=== PATIENT | male | born 1965 | race Caucasian/White ===

== ENCOUNTER 2019-07-13 18:38 | Emergency (ER) | payer MEDICARE, OTHER ==
[~2019-07-13] VITALS: Ht 170.2 cm; Wt 77.1 kg
[~2019-07-13 18:38] MED LIST: COMIH IN; LISI-283 PO; METO25TA93 PO; MONT10TA34 PO; OMEP20CA74 PO; PREDPOW63 PO; THEO1CAP4 PO
[2019-07-13 18:50] VITALS: BP 129/70
== END 2019-07-13 19:28 | disposition left against medical advice (07) ==
LOC: ER 18:39
DX: R07.89 Other chest pain (principal); Z53.21 Procedure and treatment not carried out due to patient leaving prior to being seen by health care provider
CPT/HCPCS: 71045; 93005

== ENCOUNTER 2019-09-19 19:57 | Inpatient (IN) | payer MEDICARE ==
[~2019-09-19] VITALS: Ht 172.7 cm; Wt 86.6 kg
[2019-09-19] MEDS ORDERED: MORPHINE SULFATE 4 MG/ML SYR/VIAL ONE (20:08)
[2019-09-19] MEDS ORDERED: ONDANSETRON HCL 4 MG/2 ML VIAL IV ONE (20:15)
[2019-09-19] MEDS ORDERED: ASPirin 81 mg TAB PO ONE (20:15)
[2019-09-19] MEDS ORDERED: NITROGLYCERIN 2% OINT 1GM PKG TD ONE (20:15)
[2019-09-19] MEDS ORDERED: MORPHINE SULFATE 4 MG/ML SYR/VIAL IV ONE (20:15)
[2019-09-19] MEDS ORDERED: LORazepam 2MG/ML-1ML VIAL ONE (20:28)
[2019-09-19] MEDS ORDERED: LORazepam 2MG/ML-1ML VIAL IV ONE (20:45)
[2019-09-19 20:52] LABS: Basophils # (auto) 0.1 10 ^3/uL (0-0.2); Eosinophils # (auto) 0.4 10 ^3/uL (0-0.8); Nucleated Red Blood Cells % 0.2 %
[2019-09-19 20:54] LABS: Basophils % (auto) 1.9 % (0.0-2.0); Hematocrit 21.5 % (41.0-53.0); Lymphocytes % (auto) 15.2 % (10.0-50.0); Mean Corpuscular Hgb Conc. 27.7 g/dL (32.0-36.0); Mean Corpuscular Volume 72.4 fL (80.0-100.0); Monocytes # (auto) 0.4 10 ^3/uL (0-1.3); Monocytes % (auto) 6.1 % (0.0-12.0); Neutrophils # (auto) 4.6 10 ^3/uL (1.6-8.6); Neutrophils % (auto) 70.8 % (37.0-80.0); Platelet Count (auto) 416 10^3/uL (140-450); Red Blood Cells 2.97 10^6/uL (4.5-5.90); White Blood Cell 6.5 10^3/uL (4.4-10.8)
[2019-09-19 21:03] LABS: Hemoglobin 5.9 g/dL (13.5-17.5)
[2019-09-19 21:10] LABS: Alanine Aminotransferase 27 U/L (16-61); Albumin 3.2 g/dL (3.4-5.0); Anion Gap 9 (5-15); Aspartate Aminotransferase 29 U/L (15-37); Blood Urea Nitrogen 18 mg/dL (7-18); Calcium 8.8 mg/dL (8.5-10.1); Carbon Dioxide 21 mmol/L (21-32); Chloride 108 mmol/L (98-107); Glucose 105 mg/dL (74-106); Magnesium 2.6 mg/dL (1.6-2.6); Sodium 138 mmol/L (136-145)
[2019-09-19 21:15] LABS: Alkaline Phosphatase 105 U/L (45-117); BUN/Creatinine Ratio 11.3; Bilirubin, Total 0.2 mg/dL (0.2-1.0); GFR African American 58 mL/min; GFR Non-African American 48 mL/min
[2019-09-19] MEDS ORDERED: PHYTONADIONE (VIT K)10 MG/ML 1ML VIAL SUBCUT ONE (21:15)
[2019-09-19] MEDS ORDERED: PANTOPRAZOLE 40 MG/10 ML VIAL INJ IV ONE (21:15)
[2019-09-19 22:20] LABS: INR 0.99 (0.9-1.15); Partial Thromboplastin Time 21.7 sec (23.64-32.05)
[2019-09-19] MEDS ORDERED: SODIUM BICARBONATE 50ML VIAL 50 ML in SOD CHL 0.45% 1,000 ML IV ONE (23:45)
[2019-09-20] VITALS (15 sets, daily range): BP systolic 120–173; BP diastolic 69–104
[2019-09-20] MEDS ORDERED: D5W/SOD CHLO 0.9% 1,000 ML IV SCH (00:45)
[2019-09-20] MEDS ORDERED: MORPHINE SULF INJ 2 MG/ML SYRINGE 1ML IV PRN (00:45)
[2019-09-20] MEDS ORDERED: NITROGLYCERIN 0.4 MG SL TAB SL PRN (00:45)
[2019-09-20] MEDS ORDERED: ONDANSETRON HCL 4 MG/2 ML VIAL IV PRN (00:45)
[2019-09-20] MEDS: PANTOPRAZOLE 40mg/50ML NS AE 50 ML IV SCH ×2 (01:53→09:06)
[2019-09-20] MEDS ORDERED: SODIUM CHLORIDE 0.9% 500 ML IV ONE (02:30)
[2019-09-20] MEDS: SODIUM CHLORIDE 0.9% 1,000 ML IV SCH ×2 (02:30→16:15)
--- NOTE | 2019-09-20 02:30 | NUR ---
PATIENT ARRIVED FROM ER VIA [facility], A/O, DENIES PAIN ,SOB AND CP AT THIS TIME. SKIN WARN AND DRY, NORMAL COLOR, AFEBRILE.CONNECTED TO HADOOP APPLICATION DEVELOPER AND O2 PER NC. DR'S ORDERS REVIEWED, CARE PLAN INITIATED. CALLED, UPDATED ON PT'S CONDITION. FIRST UNIT OF BLOOD GIVEN IN ER, TWO MORE TO BE TRANSFUSED.
--- NOTE | 2019-09-20 08:30 | NUR ---
Opening Shift Note Assumed care of patient, awake and alert. Stating "I want to leave now, you're not doing anything, you're not giving me any medicine, I'm hungry and thirsty. Why can't you give me food?" Patient informed of ongoing blood transfusion, Protonix drip running, reason for NPO. Risks and consequences involved in leaving hospital at this time and benefits of continued treatment and hospitalization explained to patient. Patient verbalized understanding and agreed to stay at this time. No S/S of distress/SOB or pain. See interventions for complete assessment. Bed locked on low position, side rails up x2, bed alarms on at all times, call ortiz within reach, instructed on POC and to call for assist PRN, will continue to monitor for changes Q1hr and PRN.
--- NOTE | 2019-09-20 09:34 | NUR ---
Received call from patient's Asmita who's able to provide password. Updated on patient's status and POC, verbalized understanding. All questions and concerns addressed.
--- NOTE | 2019-09-20 11:03 | NUR ---
Dr Marlow at bedside, updated on patient's status. Patient seen and examined. Received verbal order to start patient on clear liquid diet. Plan to do EGD tomorrow. Orders read back and verified. Will carry out.
--- NOTE | 2019-09-20 11:55 | NUR ---
[facility] pt transferred to floor DEMAR HARDY transferred to Tele floor via wheelchair on desktop support engineer. 3rd unit packed cells at around 100mls level. To transfusion reaction noted at this time. All patient medications and personal belongings including cellphone transferred with patient to receiving floor. Patient care transfered to Danelle GRAYSON.
--- NOTE | 2019-09-20 12:05 | NUR ---
[facility] PT TRANSFERRED TO FLOOR Verbal report received form KENAN Whiting, [facility]. Patient brought out by wheelchair by CCRT Shemar, with blood infusing to left forearm, 20 gauge, without IV pump. Pump obtained and blood connected. Patient is awake, alert and oriented X3, to self, situation and surroundings. IV X2, right forearm, 20 gauge and right antecubital, 20 gauge, both patent. Patient updated on plan of care, verbalized understanding. Bed locked, in lowest position, call light within reach, will continue to monitor Q 1 hour and PRN.
--- NOTE | 2019-09-20 13:00 | NUR ---
PRBC 3rd unit of PRBC's completed, no adverse reactions noted.
--- NOTE | 2019-09-20 13:36 | NUR ---
ROUNDS Dr Julio Medrano at bedside for rounds, new orders received and followed through. Patient updated on plan of care, verbalized understanding.
[2019-09-20] MEDS: IPRATROPIUM BROM 0.5 MG/2.5ML INH SOL NEB SCH ×3 (13:37→23:07)
[2019-09-20] MEDS: ALBUTEROL SULF 2.5 MG/0.5ML(0.5%) NEB SOLN NEB SCH ×3 (13:37→23:07)
--- NOTE | 2019-09-20 15:04 | NUR ---
BLE US Dr Julio Medrano notified of patient's BLE US results, verbalized understanding. New orders received and followed through. Patient updated on plan of care, verbalized understanding.
[2019-09-20 15:44] LABS: Hematocrit 31.3 % (41.0-53.0); Hemoglobin 9.3 g/dL (13.5-17.5)
--- NOTE | 2019-09-20 16:35 | NUR ---
CARDIOLOGY Amanda Dale at bedside for Cardiac consult, new orders received for IVC filter. Patient updated on plan of care, verbalized understanding.
[2019-09-20] MEDS ORDERED: hydrALAZINE HCL 20 MG/ML VL IV PRN (17:15)
--- NOTE | 2019-09-20 18:14 | NUR ---
CONSENTS Call placed to Asmita, patient's , to obtain telephone consent for IVC Filter placement. Message left on voicemail, awaiting return call.
--- NOTE | 2019-09-20 18:37 | NUR ---
RT NOTE PT WAS SEEN BY RT FOR HHN TX.PT SLEEPING WITHOUT SOB OR DISTRESS NOTED. TREATMENT HELD DUE TO PT JUST HAVING ONE A COUPLE HOURS AGO AND SCHEDULED MED NOT AVAILABLE. HR 88, RR 16, BS CLEAR, POX 98% ON ROOM AIR. CONT ORDERED Addendum: 09/20/19 at 2002 by Enma Hanson RT Amended: Links added.
--- NOTE | 2019-09-20 21:28 | NUR ---
CONSENT OBTAINED Called patient's , Asmita, to follow up on receiving consent for the patient's IVC filter procedure. Explained the procedure to Asmita and answered all of her questions. Asmita has given consent for the procedure to be done tomorrow. Telephone consent has been verified by Desi Chavez RN.
--- NOTE | 2019-09-20 21:55 | NUR ---
MD PAGE The patient reports having 8/10 abdominal pain but the patient currently does not have any PRN pain medication. The patient also states that he is feeling short of breathing and the scheduled Q6H breathing treatments are not enough to relieve his SOB. Will page MD for additional orders.
[2019-09-20] MEDS: PANTOPRAZOLE 40 MG/10 ML VIAL INJ IV SCH (22:30)
[2019-09-20] MEDS: METOPROLOL TARTRATE 25 MG TAB PO SCH (22:31)
[2019-09-20 22:40] LABS: Urine Bacteria NONE SEEN /hpf (None Seen); Urine Blood Negative /uL (Negative); Urine Specific Gravity 1.003 (1.001-1.035); Urine WBC <1 /hpf (0 - 3)
--- NOTE | 2019-09-20 23:07 | NUR ---
RT NOTE PT WAS SEEN BY RT FOR HHN TX. PT TOLERATES WELL VIA MASK. PT REQUESTED TX A LITTLE EARLY. NO ADVERSE REACTION NOTED. CONT ORDERED Addendum: 09/20/19 at 2312 by Enma Hanson RT Amended: Links added.
[2019-09-21] MEDS ORDERED: SODIUM CHLORIDE 0.9% 1,000 ML IV ONE (00:01)
--- NOTE | 2019-09-21 00:10 | NUR ---
MD CALL BACK MD Hensley has bee notified about the patient's abdominal pain and SOB. Order received for Percocet 5/325 mg Q4H for moderate pain and morphine 2 ml Q4H for severe pain. MD Hensley also ordered to change frequency of schedule neb treatments from Q6H to Q4H.
[2019-09-21 04:54] VITALS: BP 133/61
[2019-09-21] MEDS: SODIUM CHLORIDE 0.9% 1,000 ML IV SCH ×2 (05:10→18:12)
[2019-09-21 05:14] LABS: Basophils # (auto) 0.1 10 ^3/uL (0-0.2); Eosinophils # (auto) 0.6 10 ^3/uL (0-0.8); Nucleated Red Blood Cells % 0.1 %; Red Blood Cells 3.96 10^6/uL (4.5-5.90)
[2019-09-21 05:16] LABS: Basophils % (auto) 1.2 % (0.0-2.0); Eosinophils % (auto) 8.7 % (0.0-7.0); Hematocrit 30.1 % (41.0-53.0); Hemoglobin 9.4 g/dL (13.5-17.5); Lymphocytes % (auto) 13.8 % (10.0-50.0); Mean Corpuscular Hemoglobin 23.8 pg (28.0-32.0); Mean Corpuscular Hgb Conc. 31.4 g/dL (32.0-36.0); Monocytes # (auto) 0.5 10 ^3/uL (0-1.3); Monocytes % (auto) 6.2 % (0.0-12.0); Neutrophils # (auto) 5.2 10 ^3/uL (1.6-8.6); Neutrophils % (auto) 70.1 % (37.0-80.0); Platelet Count (auto) 342 10^3/uL (140-450); White Blood Cell 7.4 10^3/uL (4.4-10.8)
[2019-09-21 05:29] LABS: INR 1.01 (0.9-1.15); Partial Thromboplastin Time 27.9 sec (23.64-32.05)
[2019-09-21 05:30] LABS: Red Cell Distribution Width 20.9 % (11.8-14.3)
[2019-09-21 05:35] LABS: Albumin 3.1 g/dL (3.4-5.0); Calcium 8.5 mg/dL (8.5-10.1); Potassium 4.4 mmol/L (3.5-5.1)
[2019-09-21 05:39] LABS: BUN/Creatinine Ratio 7.7; Bilirubin, Total 0.6 mg/dL (0.2-1.0); Total Protein 6.7 g/dL (6.4-8.2)
[2019-09-21] MEDS: ALBUTEROL SULF 2.5 MG/0.5ML(0.5%) NEB SOLN NEB SCH ×5 (06:53→22:22)
[2019-09-21] MEDS: IPRATROPIUM BROM 0.5 MG/2.5ML INH SOL NEB SCH ×5 (06:53→22:22)
[2019-09-21] MEDS ORDERED: LIDOCAINE VISCOUS 2% 15ML UD ONE (08:20)
[2019-09-21] MEDS ORDERED: SODIUM CHLORIDE LOCK 10 ML ONE (08:20)
[2019-09-21] MEDS ORDERED: MIDAZOLAM HCL 5 MG/ML-1ML VIAL ONE (08:20)
[2019-09-21] MEDS ORDERED: diphenhdrAMINE HCL 50 MG/1 ML VL ONE (08:21)
[2019-09-21] MEDS ORDERED: fentaNYL CITRATE 100 MCG/2 ML VL ONE ×2 (08:21→10:46)
[2019-09-21 09:00] VITALS: BP 128/69
--- NOTE | 2019-09-21 09:35 | NUR ---
IVC filter Patient was taken down for IVC filter placement.
[2019-09-21] MEDS: METOPROLOL TARTRATE 25 MG TAB PO SCH ×2 (10:00→22:43)
--- NOTE | 2019-09-21 10:25 | NUR ---
Respiratory note: Unable to adminstered 1000 medneb tx, pt off unit at procedure at this time. Will return for next scheduled tx.
[2019-09-21] MEDS ORDERED: MIDAZOLAM HCL 1MG/1ML-2 ML VIAL ONE (10:46)
[2019-09-21] MEDS: PANTOPRAZOLE 40 MG/10 ML VIAL INJ IV SCH (10:54)
[2019-09-21] MEDS ORDERED: LIDOCAINE 2%HCL (LOCAL ANESTH.) INJ 20ML MDV ONE (11:05)
--- NOTE | 2019-09-21 12:45 | NUR ---
Returned to unit Patient returned to room. He is drowsy but wakes to shaking.
--- NOTE | 2019-09-21 13:06 | NUR ---
VQ scan/EGD Patient taken down for VQ scan. They will bring him for EGD right after VQ scan is done.
--- NOTE | 2019-09-21 14:22 | NUR ---
Respiratory note: Pt is still off unit at procedure at this time, unable to administer 1400 medneb tx.
--- NOTE | 2019-09-21 15:10 | NUR ---
Returned to floor Patient returned to the floor. He is drowsy and requesting food. He was informed that he needs to wake up a little more to be safe to eat. Dressing is clean dry and intact.
--- NOTE | 2019-09-21 15:20 | NUR ---
VQ results/Anticoagulant/Dr. Marlow VQ scan showed a high probability of PE. Notified Dr. Medrano who said to call Dr. Henry and ask about starting him on an anticoagulant. Dr. Henry said to call Dr. Marlow due to the fact that the patient is here for a GI Bleed and it may not be safe. Dr. Marlow said that the EGD showed a hiatal hernia and an ulcer. He said it would NOT be safe to start an anticoagulant at this time and the risks of him bleeding outweigh the benefit of starting an anticoagulant. He suggested an IVC Filter and was informed that the patient just received one today. No intervention/new orders at this time.
[2019-09-21 17:00] VITALS: BP_SYST 101; BP_SYST 141; BP_DIAS 52; BP_DIAS 89
--- NOTE | 2019-09-21 21:30 | NUR ---
PAIN ASSESSMENT The patient reports having left ankle pain after ambulating to the bathroom. He states that he feels as if he might have "twisted it". Reports that the pain is 8/10 in severity. Will treat with PRN pain medication.
[2019-09-21] MEDS: MORPHINE SULF INJ 2 MG/ML SYRINGE 1ML IV PRN (21:35)
[2019-09-21 22:00] VITALS: BP 127/66
[2019-09-21] MEDS: PANTOPRAZOLE 40 MG TAB PO SCH (22:43)
[2019-09-21] MEDS: OXYCODONE W/ ACETAMINOPHEN 5/325MG TABLET PO PRN (22:43)
[2019-09-22] MEDS: IPRATROPIUM BROM 0.5 MG/2.5ML INH SOL NEB SCH ×6 (02:33→22:22)
[2019-09-22] MEDS: ALBUTEROL SULF 2.5 MG/0.5ML(0.5%) NEB SOLN NEB SCH ×6 (02:33→22:22)
[2019-09-22] MEDS: MORPHINE SULF INJ 2 MG/ML SYRINGE 1ML IV PRN ×4 (04:05→23:27)
--- NOTE | 2019-09-22 05:00 | NUR ---
HOSPITALIST PAGED The patient continues to complain of severe left ankle pain. Notified MD Hensley and received order for left ankle x-ray.
[2019-09-22 05:10] LABS: Basophils # (auto) 0.1 10 ^3/uL (0-0.2); Eosinophils # (auto) 0.6 10 ^3/uL (0-0.8); Monocytes # (auto) 0.5 10 ^3/uL (0-1.3); Nucleated Red Blood Cells % 0.1 %
[2019-09-22 05:11] LABS: Basophils % (auto) 1.1 % (0.0-2.0); Eosinophils % (auto) 8.8 % (0.0-7.0); Hematocrit 29.3 % (41.0-53.0); Hemoglobin 9.1 g/dL (13.5-17.5); Lymphocytes % (auto) 14.3 % (10.0-50.0); Mean Corpuscular Hemoglobin 23.7 pg (28.0-32.0); Mean Corpuscular Hgb Conc. 31.1 g/dL (32.0-36.0); Mean Corpuscular Volume 76.1 fL (80.0-100.0); Neutrophils # (auto) 4.8 10 ^3/uL (1.6-8.6); Neutrophils % (auto) 68.8 % (37.0-80.0); Platelet Count (auto) 358 10^3/uL (140-450); Red Blood Cells 3.85 10^6/uL (4.5-5.90)
[2019-09-22 05:26] LABS: Red Cell Distribution Width 22.1 % (11.8-14.3)
[2019-09-22 06:01] VITALS: BP 100/61
[2019-09-22] MEDS: SODIUM CHLORIDE 0.9% 1,000 ML IV SCH ×2 (07:19→21:10)
[2019-09-22 09:11] VITALS: BP 116/64
[2019-09-22] MEDS: METOPROLOL TARTRATE 25 MG TAB PO SCH ×2 (09:37→22:00)
[2019-09-22] MEDS: PANTOPRAZOLE 40 MG TAB PO SCH ×2 (09:37→22:17)
[2019-09-22] MEDS: OXYCODONE W/ ACETAMINOPHEN 5/325MG TABLET PO PRN ×3 (09:37→19:50)
[2019-09-22 12:52] VITALS: BP 110/62
[2019-09-22 17:18] VITALS: BP 109/49
--- NOTE | 2019-09-22 18:34 | NUR ---
Pain feet/ankles Patient has been c/o pain to his feet and ankles. He informed the MD of this during rounds. An xray was taken of his left ankle (where he originally c/o pain) but was negative for any fractures. Patient now states he has pain to his ankles and the tops of both feet to the point where it hurts to walk. He has PRN Percocet and Morphine which help a little. Gave patient a hot pack and a cold pack to try and see which one helps the pain. Will inform MD again tomorrow of patient not getting much relief for this pain. Patient wants to know the cause of this pain. Patient denies any pain to his legs/calves.
--- NOTE | 2019-09-22 19:29 | NUR ---
Opening Shift Note Assumed care of patient after receiving report from KENAN Benson. Patient awake and alert, in bed. Patient rubbing ankles complaining of pain. Demanding to see doctor regarding pain, patient educated that MD aware, patient refusing pain medications at this time. Call light within reach, bed in lowest position x2 side rails. Instructed on POC and to call for assist PRN, will continue to monitor for changes Q1hr and PRN.
--- NOTE | 2019-09-22 20:02 | NUR ---
Pain management Patient complained of pain 10/, only available PRN pain medication available is Percocet for moderate pain 4-6. Percocet given at this time, will continue to monitor and reassess.
[2019-09-22 22:00] VITALS: BP 108/60
[2019-09-22] MEDS ORDERED: diphenhdrAMINE HCL 25 MG CAP PO PRN (22:00)
[2019-09-23] MEDS: OXYCODONE W/ ACETAMINOPHEN 5/325MG TABLET PO PRN ×3 (01:07→21:14)
[2019-09-23] MEDS: IPRATROPIUM BROM 0.5 MG/2.5ML INH SOL NEB SCH ×6 (02:56→22:56)
[2019-09-23] MEDS: ALBUTEROL SULF 2.5 MG/0.5ML(0.5%) NEB SOLN NEB SCH ×6 (02:57→22:56)
[2019-09-23] MEDS: MORPHINE SULF INJ 2 MG/ML SYRINGE 1ML IV PRN (03:22)
[2019-09-23 05:00] VITALS: BP 112/54
[2019-09-23 07:03] LABS: Basophils # (auto) 0.1 10 ^3/uL (0-0.2); Eosinophils # (auto) 0.6 10 ^3/uL (0-0.8); Lymphocytes # (auto) 0.9 10 ^3/uL (0.4-5.4); Mean Corpuscular Hgb Conc. 31.5 g/dL (32.0-36.0); Mean Corpuscular Volume 76.3 fL (80.0-100.0); Monocytes # (auto) 0.6 10 ^3/uL (0-1.3); White Blood Cell 6.9 10^3/uL (4.4-10.8)
[2019-09-23 07:05] LABS: Basophils % (auto) 1.2 % (0.0-2.0); Eosinophils % (auto) 9.4 % (0.0-7.0); Hematocrit 29.6 % (41.0-53.0); Hemoglobin 9.3 g/dL (13.5-17.5); Lymphocytes % (auto) 13.5 % (10.0-50.0); Mean Corpuscular Hemoglobin 24.1 pg (28.0-32.0); Monocytes % (auto) 8.3 % (0.0-12.0); Neutrophils # (auto) 4.7 10 ^3/uL (1.6-8.6); Neutrophils % (auto) 67.6 % (37.0-80.0); Platelet Count (auto) 346 10^3/uL (140-450); Red Blood Cells 3.88 10^6/uL (4.5-5.90)
[2019-09-23 07:47] LABS: Red Cell Distribution Width 22.6 % (11.8-14.3)
[2019-09-23 09:00] VITALS: BP 90/48
[2019-09-23] MEDS: METOPROLOL TARTRATE 25 MG TAB PO SCH ×2 (10:00→22:01)
[2019-09-23] MEDS: PANTOPRAZOLE 40 MG TAB PO SCH ×2 (10:22→22:00)
[2019-09-23] MEDS: SODIUM CHLORIDE 0.9% 1,000 ML IV SCH ×2 (10:23→23:50)
[2019-09-23] MEDS ORDERED: LORazepam 0.5 MG TAB PO PRN (11:45)
[2019-09-23] MEDS ORDERED: LORazepam 0.5 MG TAB PO ONE (11:45)
[2019-09-23 14:33] VITALS: BP 114/73
--- NOTE | 2019-09-23 15:37 | NUR ---
Est energy needs 2237-5000 kcal (20-25 kcal/kg BW 89kg) Est protein needs 71-89g (0.8-1g/kg BW 89kg) will reassess prn. Addendum: 09/23/19 at [address] Est protein needs 53-71g (0.6-0.8g/kg BW 89kg) d/t ISAURA, if improved, then increase protein needs to 0.8-1g/kg Addendum: 09/23/19 at [address] Amended: Links added.
[2019-09-23] MEDS: HYDROmorphone HCL 2 MG/ML VL IV PRN ×2 (16:13→19:55)
[2019-09-23 17:00] VITALS: BP 111/67
[2019-09-23 17:23] VITALS: BP 111/67
--- NOTE | 2019-09-23 19:00 | NUR ---
Opening Shift Note Assumed care of patient, awake and alert. No S/S of distress/SOB or pain. Instructed on POC and to call for assist PRN, will continue to monitor for changes Q1hr and PRN.
[2019-09-23 22:00] VITALS: BP 147/88
[2019-09-24] MEDS: HYDROmorphone HCL 2 MG/ML VL IV PRN ×4 (00:47→20:35)
[2019-09-24] MEDS: IPRATROPIUM BROM 0.5 MG/2.5ML INH SOL NEB SCH ×6 (02:38→22:12)
[2019-09-24] MEDS: ALBUTEROL SULF 2.5 MG/0.5ML(0.5%) NEB SOLN NEB SCH ×6 (02:38→22:12)
[2019-09-24 05:00] VITALS: BP 103/64
--- NOTE | 2019-09-24 07:00 | NUR ---
Opening Shift Note Received report on the patient. Awake lying in bed. Patient shows no signs of distress at this time. Discussed the plan with the patient. Bed in lowest position, side rails up x2, and the call light is within reach.
[2019-09-24] MEDS: METOPROLOL TARTRATE 25 MG TAB PO SCH ×2 (10:02→22:27)
[2019-09-24] MEDS: PANTOPRAZOLE 40 MG TAB PO SCH ×2 (10:03→22:26)
[2019-09-24 13:00] VITALS: BP 131/74
[2019-09-24] MEDS: SODIUM CHLORIDE 0.9% 1,000 ML IV SCH (13:16)
[2019-09-24 17:00] VITALS: BP 127/78
[2019-09-24 22:00] VITALS: BP 124/71
[2019-09-24] MEDS: OXYCODONE W/ ACETAMINOPHEN 5/325MG TABLET PO PRN (23:34)
[2019-09-25] MEDS: SODIUM CHLORIDE 0.9% 1,000 ML IV SCH (02:30)
[2019-09-25] MEDS: ALBUTEROL SULF 2.5 MG/0.5ML(0.5%) NEB SOLN NEB SCH ×3 (02:33→10:50)
[2019-09-25] MEDS: IPRATROPIUM BROM 0.5 MG/2.5ML INH SOL NEB SCH ×3 (02:33→10:50)
[2019-09-25] MEDS: HYDROmorphone HCL 2 MG/ML VL IV PRN (03:58)
[2019-09-25 05:00] VITALS: BP 111/56
--- NOTE | 2019-09-25 08:40 | NUR ---
IV removal IV DC'd with clean sterile technique, catheter fully intact. Pressure dressing applied to site. Patient tolerated well. Patient does not want another IV placed until the Dr comes in case he is DC'd today.
[2019-09-25 08:44] VITALS: BP 126/69
[2019-09-25] MEDS: METOPROLOL TARTRATE 25 MG TAB PO SCH (11:03)
[2019-09-25] MEDS: PANTOPRAZOLE 40 MG TAB PO SCH (11:04)
[2019-09-25 12:02] VITALS: BP 126/69
[2019-09-25 12:24] VITALS: BP 95/54
== END 2019-09-25 13:58 | disposition home or self-care (01) | DRG 356 ==
LOC: ER 19:58 → TELE 19:59 → DOU IN ICU 09-20 02:50 → TELE-WESTW 09-20 11:55
PROVIDERS: ADMIT Nurse Practitioner; ATTEND Family Medicine
PROC: 30233N1 Transfusion of Nonautologous Red Blood Cells into Peripheral Vein, Percutaneous Approach (ICD-10-PCS; principal; 2019-09-20)
PROC: 06H03DZ Insertion of Intraluminal Device into Inferior Vena Cava, Percutaneous Approach (ICD-10-PCS; 2019-09-21)
PROC: 0DB68ZX Excision of Stomach, Via Natural or Artificial Opening Endoscopic, Diagnostic (ICD-10-PCS; 2019-09-21)
PROC: B5191ZZ Fluoroscopy of Inferior Vena Cava using Low Osmolar Contrast (ICD-10-PCS; 2019-09-21)
DX: K25.4 Chronic or unspecified gastric ulcer with hemorrhage (principal); I26.99 Other pulmonary embolism without acute cor pulmonale; N17.0 Acute kidney failure with tubular necrosis; I82.441 Acute embolism and thrombosis of right tibial vein; D62 Acute posthemorrhagic anemia; K44.9 Diaphragmatic hernia without obstruction or gangrene; I10 Essential (primary) hypertension; I25.10 Atherosclerotic heart disease of native coronary artery without angina pectoris; I25.2 Old myocardial infarction; E66.9 Obesity, unspecified; J45.909 Unspecified asthma, uncomplicated; M54.31 Sciatica, right side; M54.32 Sciatica, left side; M25.572 Pain in left ankle and joints of left foot; I73.9 Peripheral vascular disease, unspecified; B96.81 Helicobacter pylori [H. pylori] as the cause of diseases classified elsewhere; E78.5 Hyperlipidemia, unspecified; D69.6 Thrombocytopenia, unspecified; Z88.8 Allergy status to other drugs, medicaments and biological substances; Z88.0 Allergy status to penicillin; Z79.899 Other long term (current) drug therapy; Z79.51 Long term (current) use of inhaled steroids; Z90.49 Acquired absence of other specified parts of digestive tract; Z86.718 Personal history of other venous thrombosis and embolism; Z82.49 Family history of ischemic heart disease and other diseases of the circulatory system; Z81.8 Family history of other mental and behavioral disorders; Z83.3 Family history of diabetes mellitus; Z82.3 Family history of stroke; Z82.0 Family history of epilepsy and other diseases of the nervous system; Z68.28 Body mass index [BMI] 28.0-28.9, adult
CPT/HCPCS: 36010; 36415; 43239; 71045; 72131; 73600; 74176; 75825; 78582; 80053; 81001; 83735; 83880; 84443; 84484; 84550; 85014; 85018; 85025; 85379; 85610; 85730; 86850; 86900; 86901; 86920; 93005; 93925; 93970; 94640; 96372; 96374; 96375; 99152; 99291; C9113; G0378; J2250; J2405; J3430

== ENCOUNTER → 2019-10-02 | Outpatient (CLI) | payer MEDICARE ==
[~2019-10-02] MED LIST changes: +[UNRECOGNIZED DRUG - CODE] PO
[2019-10-02 12:03] LABS: Basophils # (auto) 0.1 10 ^3/uL (0-0.2); Eosinophils # (auto) 0.7 10 ^3/uL (0-0.8); Hematocrit 32.4 % (41.0-53.0); Neutrophils # (auto) 5.6 10 ^3/uL (1.6-8.6); Nucleated Red Blood Cells % 0.1 %
[2019-10-02 12:06] LABS: Basophils % (auto) 1.6 % (0.0-2.0); Eosinophils % (auto) 8.4 % (0.0-7.0); Lymphocytes % (auto) 12.4 % (10.0-50.0); Mean Corpuscular Hemoglobin 23.6 pg (28.0-32.0); Mean Corpuscular Hgb Conc. 30.8 g/dL (32.0-36.0); Mean Corpuscular Volume 76.7 fL (80.0-100.0); Monocytes # (auto) 0.6 10 ^3/uL (0-1.3); Monocytes % (auto) 7.5 % (0.0-12.0); Neutrophils % (auto) 70.1 % (37.0-80.0); Platelet Count (auto) 537 10^3/uL (140-450); Red Blood Cells 4.23 10^6/uL (4.5-5.90)
[2019-10-02 12:39] LABS: Free T4 (Free Thyroxine) 1.08 ng/dL (0.89-1.76)
[2019-10-02 12:40] LABS: Carcinoembryonic Antigen < 0.50 ng/mL (<5.0 OR =); Prostate Specific Antigen 0.28 ng/mL (0.0-4.0)
[2019-10-02 12:41] LABS: Albumin 3.4 g/dL (3.4-5.0); BUN/Creatinine Ratio 10.6; Bilirubin, Total 0.2 mg/dL (0.2-1.0); Calcium 8.9 mg/dL (8.5-10.1); Total Protein 7.4 g/dL (6.4-8.2)
== END | disposition home or self-care (01) ==
LOC: LAB 11:17
PROVIDERS: ATTEND Internal Medicine
DX: C61 Malignant neoplasm of prostate (principal); E03.9 Hypothyroidism, unspecified; K90.9 Intestinal malabsorption, unspecified; E29.1 Testicular hypofunction; N39.0 Urinary tract infection, site not specified; D51.9 Vitamin B12 deficiency anemia, unspecified; E78.5 Hyperlipidemia, unspecified; Z00.00 Encounter for general adult medical examination without abnormal findings; Z79.899 Other long term (current) drug therapy
CPT/HCPCS: 36415; 80053; 80061; 82306; 82378; 82607; 83036; 84153; 84403; 84439; 84443; 84550; 85025

== ENCOUNTER 2019-10-04 16:08 | Inpatient (IN) | payer MEDICARE ==
[~2019-10-04] VITALS: Ht 170.2 cm; Wt 82.6 kg
[~2019-10-04 16:08] MED LIST changes: -[UNRECOGNIZED DRUG - CODE] PO
[2019-10-04 17:13] LABS: Urine Bacteria FEW /hpf (None Seen); Urine Blood Negative /uL (Negative); Urine Specific Gravity 1.029 (1.001-1.035); Urine WBC 1 /hpf (0 - 3)
[2019-10-04 17:31] LABS: Basophils # (auto) 0.1 10 ^3/uL (0-0.2); Basophils % (auto) 0.8 % (0.0-2.0); Eosinophils # (auto) 0.1 10 ^3/uL (0-0.8); Eosinophils % (auto) 0.6 % (0.0-7.0); Hemoglobin 9.6 g/dL (13.5-17.5); Lymphocytes # (auto) 1.3 10 ^3/uL (0.4-5.4); Lymphocytes % (auto) 13.7 % (10.0-50.0); Mean Corpuscular Hemoglobin 23.7 pg (28.0-32.0); Mean Corpuscular Hgb Conc. 29.8 g/dL (32.0-36.0); Mean Corpuscular Volume 79.6 fL (80.0-100.0); Monocytes # (auto) 0.6 10 ^3/uL (0-1.3); Neutrophils # (auto) 7.1 10 ^3/uL (1.6-8.6); Neutrophils % (auto) 77.9 % (37.0-80.0); Platelet Count (auto) 612 10^3/uL (140-450); Red Blood Cells 4.03 10^6/uL (4.5-5.90); White Blood Cell 9.2 10^3/uL (4.4-10.8)
[2019-10-04 17:36] LABS: Albumin 3.3 g/dL (3.4-5.0); Calcium 8.7 mg/dL (8.5-10.1); Potassium 4.3 mmol/L (3.5-5.1)
[2019-10-04 17:40] LABS: BUN/Creatinine Ratio 12.9; Bilirubin, Total 0.1 mg/dL (0.2-1.0); Total Protein 7.1 g/dL (6.4-8.2)
[2019-10-04 17:50] LABS: Hematocrit 29.9 % (41.0-53.0); Red Cell Distribution Width 23.2 % (11.8-14.3)
[2019-10-04 23:02] LABS: Chloride 110 mmol/L (98-107); Sodium 142 mmol/L (136-145)
[2019-10-04 23:06] LABS: Basophils # (auto) 0.1 10 ^3/uL (0-0.2); Basophils % (auto) 0.8 % (0.0-2.0); Eosinophils # (auto) 0.1 10 ^3/uL (0-0.8); Eosinophils % (auto) 0.7 % (0.0-7.0); Monocytes # (auto) 0.5 10 ^3/uL (0-1.3)
[2019-10-04 23:07] LABS: INR 1.04 (0.9-1.15); Partial Thromboplastin Time 24.3 sec (23.64-32.05)
[2019-10-04 23:08] LABS: Hematocrit 31.6 % (41.0-53.0); Hemoglobin 9.6 g/dL (13.5-17.5); Lymphocytes # (auto) 1.2 10 ^3/uL (0.4-5.4); Lymphocytes % (auto) 14.9 % (10.0-50.0); Mean Corpuscular Hemoglobin 23.9 pg (28.0-32.0); Mean Corpuscular Hgb Conc. 30.3 g/dL (32.0-36.0); Mean Corpuscular Volume 78.8 fL (80.0-100.0); Neutrophils # (auto) 6.3 10 ^3/uL (1.6-8.6); Neutrophils % (auto) 77.6 % (37.0-80.0); Nucleated Red Blood Cells % 0.1 %; Platelet Count (auto) 583 10^3/uL (140-450); Red Blood Cells 4.01 10^6/uL (4.5-5.90); White Blood Cell 8.2 10^3/uL (4.4-10.8)
[2019-10-04 23:12] LABS: Alanine Aminotransferase 26 U/L (16-61); Albumin 3.5 g/dL (3.4-5.0); Alkaline Phosphatase 94 U/L (45-117); Anion Gap 8 (5-15); Aspartate Aminotransferase 16 U/L (15-37); BUN/Creatinine Ratio 13.1; Bilirubin, Total 0.3 mg/dL (0.2-1.0); Blood Urea Nitrogen 23 mg/dL (7-18); Calcium 8.8 mg/dL (8.5-10.1); Carbon Dioxide 24 mmol/L (21-32); GFR African American 52 mL/min; GFR Non-African American 43 mL/min; Glucose 113 mg/dL (74-106); Magnesium 2.5 mg/dL (1.6-2.6); Total Protein 7.5 g/dL (6.4-8.2)
[2019-10-04 23:18] LABS: Red Cell Distribution Width 22.9 % (11.8-14.3)
[2019-10-05] MEDS ORDERED: ONDANSETRON HCL 4 MG/2 ML VIAL IV PRN (00:30)
[2019-10-05] MEDS ORDERED: NITROGLYCERIN 0.4 MG SL TAB SL PRN (00:45)
[2019-10-05] MEDS ORDERED: MORPHINE SULF INJ 2 MG/ML SYRINGE 1ML IV PRN (00:45)
[2019-10-05] MEDS ORDERED: TEMAZEPAM 15 MG CAP PO ONE (00:45)
[2019-10-05] MEDS: PANTOPRAZOLE 40mg/50ML NS AE 50 ML IV SCH ×3 (00:56→10:03)
[2019-10-05] MEDS: D5W/SOD CHLO 0.9% 1,000 ML IV SCH ×2 (01:01→18:08)
--- NOTE | 2019-10-05 01:30 | NUR ---
Telemetry admit from DEMAR ORTIZ admitted to Telemetry unit after SBAR received. Patient oriented to Steve sweeney RN, west unit, 282 room, A bed, and unit policies regarding patient care and visiting hours. Patient now on continuous telemetry monitoring, tele box #53 and telemetry reading on arrival to unit is sinus rhythm. Patient placed on bedside oxygen, weighed by bedscale and encouraged to call if they need something. All questions and concerns addressed, patient verbalized understanding.
--- NOTE | 2019-10-05 02:10 | NUR ---
Spoke to Hood and clarified transfusion order. Hood advised to hold transfusion at this time. Will carry out.
--- NOTE | 2019-10-05 02:17 | NUR ---
pt unable to confirm list of medications pt stated that they are not familiar enough to remember the medication, dose, or frequency. will inform dielectric embossing machine operator rn.
[2019-10-05 03:00] VITALS: BP 151/87
--- NOTE | 2019-10-05 03:09 | NUR ---
Respiratory note: PAGED TO BEDSIDE FOR PRN MED NEB TX. PT IS SLEEPING. NO MED NEB TX ADMINISTERED AT THIS TIME. WILL NOTIFY KENAN RANGEL.
[2019-10-05 03:10] VITALS: BP 136/82
[2019-10-05 06:22] LABS: Hematocrit 31.3 % (41.0-53.0); Hemoglobin 9.7 g/dL (13.5-17.5)
[2019-10-05] MEDS: ALBUTEROL SULF 2.5 MG/0.5ML(0.5%) NEB SOLN NEB PRN ×2 (06:29→13:19)
--- NOTE | 2019-10-05 07:20 | NUR ---
Opening Note Received report from cage shift manager RN. Patient is awake, alert and oriented x4. No signs or symptoms of distress noted at this time. Patient is on 2L NC, respirations even and unlabored. Patient denies pain at this time. Reviewed plan of care with patient, patient verbalized understanding. Patient is NPO at this time. Bed in low and locked position, call light within reach. Will continue to monitor Q1 hour and PRN.
--- NOTE | 2019-10-05 08:05 | NUR ---
IV Removed IV removed with clean sterile technique form right AC, catheter fully intact. Pressure dressing applied to site. Patient tolerated well.
[2019-10-05 09:00] VITALS: BP 142/89
--- NOTE | 2019-10-05 10:20 | NUR ---
Dr. Marlow at nurse station Discussing plan of care with this RN. Will continue to monitor Q1 hour and PRN.
--- NOTE | 2019-10-05 11:30 | NUR ---
POM Home medications brought in by patients family taken down to pharmacy.
--- NOTE | 2019-10-05 11:50 | NUR ---
Dr. Venice Medrano at bedside Discussing plan of care with patient and this RN. No new orders received. Will continue to monitor Q1 hour and PRN.
[2019-10-05 12:34] VITALS: BP 142/79
--- NOTE | 2019-10-05 13:00 | NUR ---
Home medications Per patients , patient had taken Xarelto for the last 3 days prior to admission. States he was taking it twice a day and she did not know the dosage.
[2019-10-05] MEDS ORDERED: [UNRECOGNIZED DRUG - CODE] PO (13:25)
--- NOTE | 2019-10-05 13:41 | NUR ---
stool sample collected and sent to lab
[2019-10-05 16:51] VITALS: BP 135/77
--- NOTE | 2019-10-05 19:16 | NUR ---
Closing Note Report given to shift foreman RN. No signs or symptoms of distress noted at this time.
--- NOTE | 2019-10-05 19:30 | NUR ---
opening note shift change report received from Rn Summer. pt. sleeping in bed. call light within reach. no signs distress/pain. bed low. will continue to monitor.
--- NOTE | 2019-10-05 21:36 | NUR ---
Respiratory note: PT ASSESSED FOR PRN MED NEB TX. PT'S HR 74, RR 16, SPO2 100% ON 2L NC. NO SIGNS OF ANY RESPIRATORY DISTRESS NOTED. ADVISED PT TO CALL IF TX IS NEEDED.
[2019-10-05 22:00] VITALS: BP 150/85
[2019-10-05] MEDS: PANTOPRAZOLE 40 MG/10 ML VIAL INJ IV SCH (22:35)
--- NOTE | 2019-10-05 23:10 | NUR ---
sleeping pt. asleep in bed. bed low. bed locked. iv running. call light within reach. will continue to monitor.
[2019-10-06] MEDS ORDERED: TEMAZEPAM 15 MG CAP PO PRN (00:15)
[2019-10-06] MEDS: D5W/SOD CHLO 0.9% 1,000 ML IV SCH (02:40)
[2019-10-06] MEDS: ALBUTEROL SULF 2.5 MG/0.5ML(0.5%) NEB SOLN NEB PRN (03:45)
[2019-10-06 05:21] VITALS: BP 130/77
--- NOTE | 2019-10-06 06:43 | NUR ---
home med spoke with pharmacy regarding home med. pharmacy staff to run med up.
--- NOTE | 2019-10-06 07:07 | NUR ---
END OF SHIFT CARE ENDORSED TO DAY RN PT. IN NO DISTRESS
--- NOTE | 2019-10-06 07:45 | NUR ---
Opening Note Received report from security shift manager RN. Patient is awake, alert and oriented x4. No signs or symptoms of distress noted at this time. Patient is on 2L NC, respirations even and unlabored. Patient denies pain at this time. Reviewed plan of care with patient, patient verbalized understanding. Bed in low and locked position, call light within reach. Will continue to monitor Q1 hour and PRN.
[2019-10-06 08:14] LABS: Basophils # (auto) 0 10 ^3/uL (0-0.2); Eosinophils # (auto) 0 10 ^3/uL (0-0.8); Lymphocytes # (auto) 0.9 10 ^3/uL (0.4-5.4); Monocytes # (auto) 0.4 10 ^3/uL (0-1.3)
--- NOTE | 2019-10-06 08:15 | NUR ---
Dr. Venice Medrano at nurse station Discussing plan of care with this RN. Patient to discharge home today. Will continue to monitor Q1 hour and PRN.
[2019-10-06 08:16] LABS: Basophils % (auto) 0.6 % (0.0-2.0); Eosinophils % (auto) 0.9 % (0.0-7.0); Hematocrit 32.9 % (41.0-53.0); Mean Corpuscular Hgb Conc. 30.6 g/dL (32.0-36.0); Mean Corpuscular Volume 78.6 fL (80.0-100.0); Monocytes % (auto) 7.2 % (0.0-12.0); Neutrophils # (auto) 4.1 10 ^3/uL (1.6-8.6); Neutrophils % (auto) 75.3 % (37.0-80.0); Nucleated Red Blood Cells % 0.1 %; Platelet Count (auto) 468 10^3/uL (140-450); Red Blood Cells 4.18 10^6/uL (4.5-5.90); White Blood Cell 5.4 10^3/uL (4.4-10.8)
[2019-10-06 08:33] LABS: BUN/Creatinine Ratio 9.9; Calcium 8.4 mg/dL (8.5-10.1); Potassium 3.7 mmol/L (3.5-5.1)
[2019-10-06 08:57] VITALS: BP 139/74
[2019-10-06 09:00] VITALS: BP 139/74
--- NOTE | 2019-10-06 09:45 | NUR ---
POM Patients medications picked up from pharmacy by this RN and returned to patient.
[2019-10-06] MEDS: PANTOPRAZOLE 40 MG/10 ML VIAL INJ IV SCH (10:00)
--- NOTE | 2019-10-06 11:15 | NUR ---
Discharge Discharge instructions given as ordered. Encourage to follow up with PMD as instructed. All questions and concerns addressed. Patient verbalized understanding. Medication reconciliation form completed and copy given to patient. Home medications held in Pharmacy returned to patient. IV removed with catheter intact, pressure dressing applied. Telemetry unit returned to ICU. Patient taken to vehicle via wheelchair with all personal belongings, accompanied by staff member. No signs or symptoms of distress noted at this time.
== END 2019-10-06 11:15 | disposition home or self-care (01) | DRG 377 ==
LOC: ER 16:08 → TELE-WESTW 16:09
PROVIDERS: ADMIT Nurse Practitioner; ATTEND Family Medicine
DX: K92.1 Melena (principal); I26.99 Other pulmonary embolism without acute cor pulmonale; B96.81 Helicobacter pylori [H. pylori] as the cause of diseases classified elsewhere; E78.5 Hyperlipidemia, unspecified; F03.90 Unspecified dementia, unspecified severity, without behavioral disturbance, psychotic disturbance, mood disturbance, and anxiety; I12.9 Hypertensive chronic kidney disease with stage 1 through stage 4 chronic kidney disease, or unspecified chronic kidney disease; I25.10 Atherosclerotic heart disease of native coronary artery without angina pectoris; I70.202 Unspecified atherosclerosis of native arteries of extremities, left leg; G89.29 Other chronic pain; J45.909 Unspecified asthma, uncomplicated; K57.30 Diverticulosis of large intestine without perforation or abscess without bleeding; K59.00 Constipation, unspecified; K44.9 Diaphragmatic hernia without obstruction or gangrene; E78.00 Pure hypercholesterolemia, unspecified; Z82.0 Family history of epilepsy and other diseases of the nervous system; Z82.3 Family history of stroke; Z82.49 Family history of ischemic heart disease and other diseases of the circulatory system; Z83.3 Family history of diabetes mellitus; Z86.711 Personal history of pulmonary embolism; Z86.718 Personal history of other venous thrombosis and embolism; Z87.11 Personal history of peptic ulcer disease; Z95.828 Presence of other vascular implants and grafts; Z79.899 Other long term (current) drug therapy; Z90.49 Acquired absence of other specified parts of digestive tract; I25.2 Old myocardial infarction; Z79.01 Long term (current) use of anticoagulants; N18.2 Chronic kidney disease, stage 2 (mild)
CPT/HCPCS: 36415; 71045; 74176; 80048; 80053; 80061; 81001; 82270; 82306; 82378; 82607; 83036; 83735; 83880; 84153; 84403; 84439; 84443; 84484; 84550; 85014; 85018; 85025; 85610; 85730; 86850; 86900; 86901; 86920; 87081; 93005; 94640; G0378; J7042

== ENCOUNTER → 2019-10-10 | Outpatient (CLI) | payer MEDICARE ==
[~2019-10-10] MED LIST changes: +[UNRECOGNIZED DRUG - CODE] PO
[2019-10-10 17:01] LABS: Basophils % (auto) 0.4 % (0.0-2.0); Lymphocytes # (auto) 0.9 10 ^3/uL (0.4-5.4); Lymphocytes % (auto) 10.2 % (10.0-50.0); Monocytes # (auto) 0.6 10 ^3/uL (0-1.3); Monocytes % (auto) 5.9 % (0.0-12.0); Neutrophils # (auto) 7.7 10 ^3/uL (1.6-8.6); Neutrophils % (auto) 82.5 % (37.0-80.0); Nucleated Red Blood Cells % 0.1 %; White Blood Cell 9.3 10^3/uL (4.4-10.8)
[2019-10-10 17:02] LABS: Basophils # (auto) 0 10 ^3/uL (0-0.2); Eosinophils # (auto) 0.1 10 ^3/uL (0-0.8); Hematocrit 36.3 % (41.0-53.0); Hemoglobin 10.8 g/dL (13.5-17.5); Mean Corpuscular Hemoglobin 23.8 pg (28.0-32.0); Mean Corpuscular Hgb Conc. 29.9 g/dL (32.0-36.0); Mean Corpuscular Volume 79.5 fL (80.0-100.0); Red Blood Cells 4.56 10^6/uL (4.5-5.90); Red Cell Distribution Width 25.2 % (11.8-14.3)
[2019-10-10 17:03] LABS: Platelet Count (auto) 508 10^3/uL (140-450)
== END | disposition home or self-care (01) ==
LOC: LAB 13:04
PROVIDERS: ATTEND Internal Medicine
DX: D64.9 Anemia, unspecified (principal)
CPT/HCPCS: 36415; 85025

== ENCOUNTER → 2019-10-12 | Outpatient (CLI) | payer MEDICARE | END | disposition home or self-care (01) | LOC: Rad HDHVI 12:52 | PROVIDERS: ATTEND Internal Medicine | DX: I34.0 Nonrheumatic mitral (valve) insufficiency (principal); I11.9 Hypertensive heart disease without heart failure; I26.99 Other pulmonary embolism without acute cor pulmonale; R06.02 Shortness of breath | CPT/HCPCS: 93306 ==

== ENCOUNTER → 2019-10-29 | Outpatient (CLI) | payer MEDICARE ==
[2019-10-29 11:39] LABS: Basophils # (auto) 0 10 ^3/uL (0-0.2); Eosinophils # (auto) 0.1 10 ^3/uL (0-0.8); Hemoglobin 13.7 g/dL (13.5-17.5); Lymphocytes # (auto) 0.9 10 ^3/uL (0.4-5.4); Monocytes # (auto) 0.4 10 ^3/uL (0-1.3); White Blood Cell 4.6 10^3/uL (4.4-10.8)
[2019-10-29 11:41] LABS: Basophils % (auto) 0.6 % (0.0-2.0); Eosinophils % (auto) 1.5 % (0.0-7.0); Hematocrit 42.9 % (41.0-53.0); Lymphocytes % (auto) 20.7 % (10.0-50.0); Mean Corpuscular Hemoglobin 27.1 pg (28.0-32.0); Mean Corpuscular Volume 84.7 fL (80.0-100.0); Monocytes % (auto) 8.5 % (0.0-12.0); Neutrophils # (auto) 3.1 10 ^3/uL (1.6-8.6); Neutrophils % (auto) 68.7 % (37.0-80.0); Platelet Count (auto) 183 10^3/uL (140-450); Red Blood Cells 5.06 10^6/uL (4.5-5.90)
[2019-10-29 11:43] LABS: Red Cell Distribution Width 28.4 % (11.8-14.3)
[2019-10-29 12:39] LABS: Potassium 4.6 mmol/L (3.5-5.1)
[2019-10-29 12:57] LABS: Albumin 3.7 g/dL (3.4-5.0); BUN/Creatinine Ratio 13.5; Bilirubin, Total 0.4 mg/dL (0.2-1.0); CRP High Sensitivity 0.65 mg/dL (< 0.3); Calcium 9.1 mg/dL (8.5-10.1); Total Protein 7.9 g/dL (6.4-8.2)
== END | disposition home or self-care (01) ==
LOC: LAB 10:56
PROVIDERS: ATTEND Internal Medicine
DX: C61 Malignant neoplasm of prostate (principal); E03.9 Hypothyroidism, unspecified; K90.9 Intestinal malabsorption, unspecified; E29.1 Testicular hypofunction; N39.0 Urinary tract infection, site not specified; D51.9 Vitamin B12 deficiency anemia, unspecified; I10 Essential (primary) hypertension; R97.0 Elevated carcinoembryonic antigen [CEA]; Z00.00 Encounter for general adult medical examination without abnormal findings; Z79.899 Other long term (current) drug therapy
CPT/HCPCS: 36415; 80053; 82378; 85025; 85652; 86141

== ENCOUNTER → 2019-10-30 | Outpatient (CLI) | payer MEDICARE ==
[~2019-10-30] VITALS: Ht 170.2 cm; Wt 83.9 kg
[~2019-10-30] MED LIST changes: +ADENOSINE 70 MG in GIVE UN-DILUTED 0 ML IV ONE; +ADENOSINE 90 MG/30 ML INJ IV ONE
== END | disposition home or self-care (01) ==
LOC: Rad HDHVI 13:19
PROVIDERS: ATTEND Internal Medicine
DX: I25.10 Atherosclerotic heart disease of native coronary artery without angina pectoris (principal); I10 Essential (primary) hypertension; I25.2 Old myocardial infarction; R07.9 Chest pain, unspecified; Z82.49 Family history of ischemic heart disease and other diseases of the circulatory system
CPT/HCPCS: 78452; 93005; 96374; 96375; A9500; J0153

== ENCOUNTER 2020-02-01 13:34 | Emergency (ER) | payer MEDICARE ==
[~2020-02-01] VITALS: Ht 172.7 cm; Wt 81.6 kg
[~2020-02-01 13:34] MED LIST changes: -ADENOSINE 70 MG in GIVE UN-DILUTED 0 ML IV ONE; -ADENOSINE 90 MG/30 ML INJ IV ONE
[2020-02-01 13:48] VITALS: BP 142/83
[2020-02-01] MEDS ORDERED: methylPREDNISolone SOD SUCC 125 MG/2 ML VL IM ONE (14:15)
[2020-02-01] MEDS ORDERED: KETOROLAC TROMETH 60MG/2ML VIAL IM ONE (14:15)
== END 2020-02-01 14:58 | disposition home or self-care (01) ==
LOC: ER 13:34
DX: M10.071 Idiopathic gout, right ankle and foot (principal); M10.072 Idiopathic gout, left ankle and foot; E78.5 Hyperlipidemia, unspecified; I10 Essential (primary) hypertension; Z88.0 Allergy status to penicillin
CPT/HCPCS: 96372; 99284; J1885; J2930